=== PATIENT | female | born 1975 | race Caucasian/White ===

== ENCOUNTER 2019-08-04 12:49 | Emergency (ER) | payer SELFPAY ==
[~2019-08-04] VITALS: Ht 170.2 cm; Wt 70.0 kg
[~2019-08-04 12:49] MED LIST: NO HOME MEDS
[2019-08-04 14:05] LABS: URINE BILIRUBIN - DIPSTICK NEGATIVE (NEGATIVE); URINE BLOOD DIPSTICK TRACE-INTACT (NEGATIVE); URINE COLOR YELLOW; URINE GLUCOSE - DIPSTICK NEGATIVE (NEGATIVE); URINE KETONE 15 mg/dL (NEGATIVE); URINE LEUK ESTERASE NEGATIVE (NEGATIVE); URINE NITRITE - DIPSTICK NEGATIVE (Negative); URINE PROTEIN - DIPSTICK NEGATIVE (NEG-TRACE); URINE UROBILINOGEN - DIPSTICK 0.2 E.U./dL (0.2)
[2019-08-04 14:07] LABS: IMMATURE GRANULOCYTES 0.3 % (0.0-5.0); MEAN CORPUSCULAR HGB 30.9 pG CALC (26.0-32.0); MEAN CORPUSCULAR HGB CONC 33.5 g/dL CAL (32.0-36.0); NEUT# 6.04 thou/uL (2.00-7.15); RED BLOOD COUNT 4.44 mill/uL (4.20-5.60); RED CELL DISTRI WIDTH 12.5 % (11.5-15.5)
[2019-08-04 14:09] LABS: HEMATOCRIT 40.9 % (37.0-47.0); HEMOGLOBIN 13.7 g/dl (12.0-16.0); MEAN CELL VOLUME 92.1 fL CALC (80.0-100.0)
[2019-08-04 14:45] LABS: ALBUMIN 4.5 g/dL (3.2-5.0); ALKALINE PHOSPHATASE 85 u/l (38-126); ANION GAP 11 (6-22 (CALC)); BILIRUBIN, TOTAL 0.3 mg/dL (0.0-1.4); BUN 15 mg/dL (7-17); BUN/CREATININE RATIO 23 (12-20 (CALC)); CARBON DIOXIDE 28 mmol/l (22-30); CHLORIDE 103 mmol/l (95-108); CREATININE 0.7 mg/dL (0.5-1.0); GFR > 60 ML/MIN (>=60 (CALC)); GFR FOR AFR.AMER. > 60 ML/MIN (>=60 (CALC)); LIPASE 78 u/l (23-300); POTASSIUM 3.8 mmol/l (3.5-5.1); SGOT/AST 19 u/l (14-36); SODIUM 138 mmol/l (137-146); TOTAL PROTEIN 7.3 g/dL (6.3-8.2)
[2019-08-04] MEDS ORDERED: KEFLEX500 M1 PO (16:18)
[2019-08-04 16:22] VITALS: BP 128/77
== END 2019-08-04 16:22 | disposition home or self-care (01) | DRG 694 ==
LOC: ED 12:49
PROVIDERS: Family Medicine
DX: N20.9 Urinary calculus, unspecified (principal)

== ENCOUNTER 2019-12-30 11:45 | Emergency (ER) | payer BC ==
[~2019-12-30] VITALS: Ht 170.2 cm; Wt 65.0 kg
[~2019-12-30 11:45] MED LIST changes: +KEFLEX500 M1 PO
[2019-12-30 13:24] LABS: URINE BILIRUBIN - DIPSTICK NEGATIVE (NEGATIVE); URINE BLOOD DIPSTICK NEGATIVE (NEGATIVE); URINE COLOR YELLOW; URINE GLUCOSE - DIPSTICK NEGATIVE (NEGATIVE); URINE KETONE NEGATIVE (NEGATIVE); URINE LEUK ESTERASE NEGATIVE (NEGATIVE); URINE NITRITE - DIPSTICK NEGATIVE (Negative); URINE PROTEIN - DIPSTICK NEGATIVE (NEG-TRACE); URINE SPECIFIC GRAVITY <=1.005; URINE UROBILINOGEN - DIPSTICK 0.2 E.U./dL (0.2)
[2019-12-30 14:10] VITALS: BP 130/75
[2019-12-30] MEDS ORDERED: MOTRIN200 MG PO (14:20)
[2019-12-30] MEDS ORDERED: NEURONTIN300 MG PO (14:20)
== END 2019-12-30 14:10 | disposition home or self-care (01) | DRG 195 ==
LOC: ED 11:45
DX: J10.1 Influenza due to other identified influenza virus with other respiratory manifestations (principal); Z20.828 Contact with and (suspected) exposure to other viral communicable diseases

== ENCOUNTER 2020-01-01 20:05 | Emergency (ER) | payer BC ==
[~2020-01-01 20:05] MED LIST changes: +MOTRIN200 MG PO; +NEURONTIN300 MG PO
== END 2020-01-01 21:03 | disposition left against medical advice (07) | DRG 951 ==
LOC: ED 20:05 → LWOBS 21:03 → ED 21:03
DX: Z91.19 Patient's noncompliance with other medical treatment and regimen (principal)